=== PATIENT | female | born 1985 | race Two or more races ===

== ENCOUNTER 2020-05-18 07:56 | Emergency (ER) | payer MEDICAID ==
[~2020-05-18] VITALS: Ht 157.5 cm; Wt 59.0 kg
[~2020-05-18 07:56] MED LIST: IBUP400T22 PO; PREN27TA7 OR
[2020-05-18 07:57] VITALS: BP 97/73
[2020-05-18] MEDS ORDERED: EPINEPHrine HCL 1 MG/1 ML AMP SC ONE (08:15)
[2020-05-18] MEDS ORDERED: methylPREDNISolone SOD SUCC 125 MG/2 ML VL IM ONE (08:15)
== END 2020-05-18 08:48 | disposition home or self-care (01) ==
LOC: ER 07:56
DX: T78.3XXA Angioneurotic edema, initial encounter (principal); F17.210 Nicotine dependence, cigarettes, uncomplicated
CPT/HCPCS: 96372; 99284; J0171; J2930

== ENCOUNTER 2020-05-29 06:35 | Emergency (ER) | payer MEDICAID ==
[~2020-05-29] VITALS: Ht 157.5 cm; Wt 63.5 kg
[2020-05-29] MEDS ORDERED: IBUPROFEN 800 MG TAB PO ONE (08:15)
[2020-05-29] MEDS ORDERED: METHOCARBAMOL 500 MG TAB PO ONE (08:15)
[2020-05-29 09:10] VITALS: BP 109/70
== END 2020-05-29 09:31 | disposition home or self-care (01) ==
LOC: ER 06:35
DX: S16.1XXA Strain of muscle, fascia and tendon at neck level, initial encounter (principal); F17.210 Nicotine dependence, cigarettes, uncomplicated; Z79.899 Other long term (current) drug therapy; M25.512 Pain in left shoulder; Y08.89XA Assault by other specified means, initial encounter; Y93.89 Activity, other specified; Y92.89 Other specified places as the place of occurrence of the external cause; Y99.8 Other external cause status
CPT/HCPCS: 72040; 73030